=== PATIENT | male | born 1935 | race Caucasian/White ===

== ENCOUNTER 2023-11-10 06:41 | Inpatient (IN) | payer OTHER ==
[2023-11-10] MEDS ORDERED: MIDAZOLAM HCL 2 MG/2 ML SINGLE DOSE VIAL ONE ×2 (08:20→08:52)
[2023-11-10 08:21] LABS: VENOUS O2 SATURATION 21.6 % (70-80); VENOUS PCO2 39.5 mmHg (38-52); VENOUS PH 7.381 (7.310-7.410)
[2023-11-10] MEDS: MIDAZOLAM HCL 2 MG/2 ML SINGLE DOSE VIAL IVPUSH ONE ×2 (08:35→09:03)
[2023-11-10] MEDS: SODIUM CHLORIDE 0.9% 500 ML INFUS.BAG IV ONE ×3 (08:36→12:20)
[2023-11-10 08:38] LABS: BASO % 0.6 % (0-2.0); EOS % 1.1 % (0-4.5); HEMATOCRIT 37.6 % (35.4-49); HEMOGLOBIN 12.6 GM/dL (11.7-16.9); LYMPH % 15.7 % (8-40); MCH 30.1 pg (25.7-33.7); MCHC 33.4 g/dl (32.0-35.9); MEAN CELL VOLUME 90.1 fl (80-96); MEAN PLT VOLUME 8.1 fl (7.5-11.1); MONO % 8.1 % (3.8-10.2); NEUT % 74.5 % (42.8-82.8); PLATELET COUNT 276 10^3/uL (134-434); RBC 4.17 M/mm3 (4.00-5.60); RDW 13.3 % (11.9-15.9); WHITE BLOOD COUNT 8.3 K/mm3 (4.0-10.0)
[2023-11-10 08:41] LABS: POTASSIUM 4.3 mmol/L (3.5-5.1)
[2023-11-10 08:43] LABS: CALCIUM 9.2 mg/dL (8.5-10.1)
[2023-11-10 08:44] LABS: ALBUMIN 3.8 g/dl (3.4-5.0); BLOOD UREA NITROGEN 21.6 mg/dL (7-18)
[2023-11-10 08:48] LABS: BILIRUBIN,TOTAL 0.8 mg/dL (0.2-1); TOT PROT 6.9 g/dl (6.4-8.2)
[2023-11-10 09:31] LABS: MAGNESIUM 2.3 mg/dL (1.8-2.4)
[2023-11-10 11:38] LABS: PH,URINE 7.5 (5.0-8.0); URINE APPEARANCE Clear; URINE BILIRUBIN Negative (NEGATIVE); URINE COLOR Light yellow; URINE GLUCOSE (UA) Negative (NEGATIVE); URINE KETONE Negative (NEGATIVE); URINE LEUK ESTERASE 3+ (NEGATIVE); URINE NITRITE Negative (NEGATIVE); URINE PROTEIN Negative (NEGATIVE); URINE UROBILINOGEN 0.2 mg/dL (0.2-1.0)
[2023-11-10 12:32] LABS: EPI CELLS 11 /uL (0-25.1); URINE RBC 24 /uL (0-23.9); URINE WBC 326 /uL (0-25.8)
[2023-11-10 12:33] LABS: HYALINE CASTS 0.7 /uL (0-3.1); URINE BACTERIA 784 /uL (0-1359)
[2023-11-10] MEDS ORDERED: cefTRIAXone SODIUM 1 GM VIAL ONE (12:56)
[2023-11-10] MEDS ORDERED: CEFTRIAXONE 1 GM/50 ML BAG ONE (12:57)
[2023-11-10] MEDS: DEXTROSE 5%-NORMAL SALINE 1,000 ML IV SCH (14:12)
[2023-11-10] MEDS ORDERED: levETIRAcetam 500 MG/5 ML INJECTION VIAL IVPB ONE (16:58)
[2023-11-10] MEDS: levETIRAcetam 500 MG/5 ML INJECTION VIAL IVPB ONE (17:12)
[2023-11-10] MEDS: levETIRAcetam 500 MG/5 ML INJECTION VIAL IVPB SCH (23:07)
[2023-11-10] MEDS: METOPROLOL TARTRATE 25 MG TABLET (FP) PO SCH (23:08)
[2023-11-11 07:13] LABS: BASO % 0.9 % (0-2.0); EOS % 1.5 % (0-4.5); HEMATOCRIT 33.8 % (35.4-49); HEMOGLOBIN 11.2 GM/dL (11.7-16.9); LYMPH % 11.9 % (8-40); MCH 30.1 pg (25.7-33.7); MCHC 33.2 g/dl (32.0-35.9); MEAN CELL VOLUME 90.5 fl (80-96); MEAN PLT VOLUME 7.8 fl (7.5-11.1); MONO % 10.6 % (3.8-10.2); NEUT % 75.1 % (42.8-82.8); PLATELET COUNT 241 10^3/uL (134-434); RBC 3.73 M/mm3 (4.00-5.60); WHITE BLOOD COUNT 5.8 K/mm3 (4.0-10.0)
[2023-11-11 07:36] LABS: ALBUMIN 3.4 g/dl (3.4-5.0); BLOOD UREA NITROGEN 9.6 mg/dL (7-18); MAGNESIUM 2.1 mg/dL (1.8-2.4); POTASSIUM 3.6 mmol/L (3.5-5.1)
[2023-11-11 07:39] LABS: CREATININE 0.8 mg/dL (0.55-1.3)
[2023-11-11 07:40] LABS: BILIRUBIN,TOTAL 0.7 mg/dL (0.2-1)
[2023-11-11] MEDS: FINASTERIDE 5 MG TABLET (FP) PO SCH (10:23)
[2023-11-11] MEDS: CEFTRIAXONE 1 GM in DEXTROSE 5%-WATER - 50 ML IVPB SCH (10:23)
[2023-11-11] MEDS: SERTRALINE HCL 25 MG TABLET (FP) PO SCH (10:23)
[2023-11-13] MEDS ORDERED: ACETAMINOPHEN 325 MG TABLET (FP) PO PRN (10:51)
[2023-11-13 11:25] LABS: BASO % 0.4 % (0-2.0); EOS % 0.1 % (0-4.5); HEMATOCRIT 33.7 % (35.4-49); HEMOGLOBIN 11.3 GM/dL (11.7-16.9); LYMPH % 10.2 % (8-40); MCH 30.2 pg (25.7-33.7); MCHC 33.6 g/dl (32.0-35.9); MEAN CELL VOLUME 89.8 fl (80-96); MEAN PLT VOLUME 7.3 fl (7.5-11.1); MONO % 9.3 % (3.8-10.2); PLATELET COUNT 261 10^3/uL (134-434); RBC 3.75 M/mm3 (4.00-5.60); WHITE BLOOD COUNT 8.3 K/mm3 (4.0-10.0)
[2023-11-13 11:43] LABS: POTASSIUM 3.4 mmol/L (3.5-5.1)
[2023-11-13 11:45] LABS: CALCIUM 7.7 mg/dL (8.5-10.1)
[2023-11-13 11:46] LABS: BLOOD UREA NITROGEN 10.2 mg/dL (7-18)
[2023-11-13 11:49] LABS: CREATININE 0.8 mg/dL (0.55-1.3)
[2023-11-13 11:51] LABS: BILIRUBIN,TOTAL 0.4 mg/dL (0.2-1); TOT PROT 5.9 g/dl (6.4-8.2)
[2023-11-13] MEDS: PIPERACILLIN/TAZOB 4.5 GM 4.5 GM in DEXTROSE 5%-WATER 100 ML IVPB SCH (21:14)
[2023-11-13] MEDS: ACETAMINOPHEN 1000 MG/100 ML BAG IVPB PRN (22:36)
[2023-11-14 10:47] LABS: BASO % 0.1 % (0-2.0); HEMATOCRIT 36.4 % (35.4-49); LYMPH % 5.9 % (8-40); MCH 29.8 pg (25.7-33.7); MCHC 32.9 g/dl (32.0-35.9); MEAN CELL VOLUME 90.5 fl (80-96); MEAN PLT VOLUME 7.6 fl (7.5-11.1); MONO % 7.4 % (3.8-10.2); NEUT % 86.6 % (42.8-82.8); PLATELET COUNT 295 10^3/uL (134-434); RBC 4.02 M/mm3 (4.00-5.60); RDW 13.2 % (11.9-15.9); WHITE BLOOD COUNT 12.4 K/mm3 (4.0-10.0)
[2023-11-14 11:06] LABS: ALBUMIN 2.8 g/dl (3.4-5.0); BLOOD UREA NITROGEN 18.4 mg/dL (7-18)
[2023-11-14 11:09] LABS: CREATININE 0.9 mg/dL (0.55-1.3)
[2023-11-14 11:11] LABS: BILIRUBIN,TOTAL 0.8 mg/dL (0.2-1)
[2023-11-14] MEDS: PIPERACILLIN/TAZOB 4.5 GM 4.5 GM in DEXTROSE 5%-WATER 100 ML IVPB SCH ×2 (14:55→19:04)
[2023-11-15 07:36] LABS: HEMOGLOBIN 11.8 GM/dL (11.7-16.9); MCH 30.3 pg (25.7-33.7); MCHC 33.9 g/dl (32.0-35.9); MEAN CELL VOLUME 89.4 fl (80-96); MEAN PLT VOLUME 8.2 fl (7.5-11.1); PLATELET COUNT 280 10^3/uL (134-434); RBC 3.91 M/mm3 (4.00-5.60); RDW 13.4 % (11.9-15.9); WHITE BLOOD COUNT 13.3 K/mm3 (4.0-10.0)
[2023-11-15 07:50] LABS: POTASSIUM 3.6 mmol/L (3.5-5.1)
[2023-11-15 07:53] LABS: ALBUMIN 2.4 g/dl (3.4-5.0); BLOOD UREA NITROGEN 24.2 mg/dL (7-18)
[2023-11-15 07:56] LABS: CREATININE 0.7 mg/dL (0.55-1.3)
[2023-11-15 07:57] LABS: BILIRUBIN,TOTAL 0.6 mg/dL (0.2-1); TOT PROT 5.5 g/dl (6.4-8.2)
[2023-11-15 10:25] LABS: ANISOCYTOSIS 0; MACROCYTOSIS 0
[2023-11-15] MEDS: LORazepam 2 MG/ML SDV VIAL IVPUSH PRN (10:35)
[2023-11-15] MEDS: levETIRAcetam 500 MG/5 ML INJECTION VIAL IVPB SCH ×2 (10:38→21:58)
[2023-11-15] MEDS: levETIRAcetam 500 MG/5 ML INJECTION VIAL IVPB ONE (16:47)
[2023-11-15] MEDS: D5-1/2NS+20 MEQ KCL - 20 MEQ/1,000 ML INFUS.BAG IV SCH ×2 (19:43→20:40)
[2023-11-15] MEDS: ACETAMINOPHEN 1000 MG/100 ML BAG IVPB PRN (20:51)
[2023-11-15] MEDS: METOPROLOL TARTRATE 5 MG/5 ML VIAL IVPUSH SCH (21:56)
[2023-11-15] MEDS: MUPIROCIN 2% TOPICAL OINTMENT FOR DECOLONIZATION NS SCH (21:58)
[2023-11-15] MEDS: CHLORHEXIDINE GLUCONATE 4% CLEANSER FOR DECOLONIZATION TP SCH (21:58)
[2023-11-15] MEDS ORDERED: MUPIROCIN 2% TOPICAL OINTMENT FOR DECOLONIZATION NS SCH (22:00)
[2023-11-15] MEDS ORDERED: CHLORHEXIDINE GLUCONATE 4% CLEANSER FOR DECOLONIZATION TP SCH (22:00)
[2023-11-15] MEDS ORDERED: METOPROLOL TARTRATE 25 MG TABLET (FP) PO SCH (22:00)
[2023-11-15] MEDS ORDERED: levETIRAcetam 500 MG/5 ML INJECTION VIAL IVPB SCH ×2 (22:00)
[2023-11-15] MEDS ORDERED: METOPROLOL TARTRATE 5 MG/5 ML VIAL IVPUSH SCH (22:00)
[2023-11-16] MEDS: PIPERACILLIN/TAZOB 4.5 GM 4.5 GM in DEXTROSE 5%-WATER 100 ML IVPB SCH (01:32)
[2023-11-16 07:28] LABS: BASO % 0.1 % (0-2.0); HEMATOCRIT 35.6 % (35.4-49); HEMOGLOBIN 11.8 GM/dL (11.7-16.9); LYMPH % 3.6 % (8-40); MCH 30.2 pg (25.7-33.7); MCHC 33.3 g/dl (32.0-35.9); MEAN CELL VOLUME 90.6 fl (80-96); MEAN PLT VOLUME 8.2 fl (7.5-11.1); MONO % 5.4 % (3.8-10.2); NEUT % 90.9 % (42.8-82.8); PLATELET COUNT 293 10^3/uL (134-434); RBC 3.92 M/mm3 (4.00-5.60); RDW 13.3 % (11.9-15.9); WHITE BLOOD COUNT 13.6 K/mm3 (4.0-10.0)
[2023-11-16 07:50] LABS: POTASSIUM 3.6 mmol/L (3.5-5.1)
[2023-11-16 07:58] LABS: ALBUMIN 2.2 g/dl (3.4-5.0); BLOOD UREA NITROGEN 26.4 mg/dL (7-18); CALCIUM 7.9 mg/dL (8.5-10.1); MAGNESIUM 2.3 mg/dL (1.8-2.4)
[2023-11-16 08:01] LABS: CREATININE 0.8 mg/dL (0.55-1.3); PHOSPHOROUS 1.5 mg/dL (2.5-4.9)
[2023-11-16 08:02] LABS: BILIRUBIN,TOTAL 0.6 mg/dL (0.2-1); TOT PROT 5.6 g/dl (6.4-8.2)
[2023-11-16] MEDS ORDERED: SODIUM PHOSPHATE - 0 MM in DEXTROSE 5%-WATER - 250 ML IVPB ONE (08:35)
[2023-11-16] MEDS: D5-1/2NS+20 MEQ KCL - 20 MEQ/1,000 ML INFUS.BAG IV SCH (10:11)
[2023-11-16] MEDS: SERTRALINE HCL 25 MG TABLET (FP) PO SCH (10:14)
[2023-11-16] MEDS: FINASTERIDE 5 MG TABLET (FP) PO SCH (10:14)
[2023-11-16] MEDS: SODIUM PHOSPHATE - 30 MM in DEXTROSE 5%-WATER - 250 ML IVPB ONE (11:53)
[2023-11-16] MEDS ORDERED: ENOXAPARIN NA (PORCINE) 40 MG/0.4 ML DISP.SYRIN SQ SCH (12:09)
[2023-11-16 14:56] VITALS: BMI 21.2
[2023-11-16] MEDS: MORPHINE SULFATE/0.9% NACL/PF 100 MG/100 ML BAG IVPB SCH (16:14)
[2023-11-16] MEDS: SCOPOLAMINE HYDROBROMIDE 1 PATCH PATCH.TD72 TD SCH (16:15)
[2023-11-17] MEDS ORDERED: POTASSIUM PHOSPHATE 30 MM in DEXTROSE 5%-WATER - 250 ML IVPB ONE (08:30)
[2023-11-17] MEDS: GLYCOPYRROLATE 0.2 MG/1 ML VIAL IM PRN (09:13)
[2023-11-17] MEDS ORDERED: GLYCOPYRROLATE 1 MG/5 ML VIAL IM ONE (09:22)
[2023-11-17] MEDS: GLYCOPYRROLATE 0.2 MG/1 ML VIAL IM ONE (09:50)
[2023-11-17] MEDS ORDERED: ENOXAPARIN NA (PORCINE) 40 MG/0.4 ML DISP.SYRIN SQ SCH (10:00)
[2023-11-17] MEDS: AMINO ACIDS 4.25%/D5W 1,000 ML IV SCH (11:11)
[2023-11-17] MEDS: MORPHINE SULFATE/0.9% NACL/PF 100 MG/100 ML BAG IVPB SCH (14:31)
[2023-11-17] MEDS ORDERED: GLYCOPYRROLATE 0.2 MG/1 ML VIAL IM PRN (18:31)
[2023-11-18] MEDS ORDERED: GLYCOPYRROLATE 0.2 MG/1 ML VIAL IM PRN (17:17)
[2023-11-18] MEDS: MORPHINE SULFATE/0.9% NACL/PF 100 MG/100 ML BAG IVPB SCH (18:54)
[2023-11-18] MEDS: LORazepam 2 MG/ML SDV VIAL IVPUSH PRN (19:43)
[2023-11-18 19:58] VITALS: BP 100/50; PULSE 78; RESP 18; TEMP 100
[2023-11-18] MEDS: levETIRAcetam 500 MG/5 ML INJECTION VIAL IVPB SCH (21:41)
[2023-11-19] MEDS ORDERED: SCOPOLAMINE HYDROBROMIDE 1 PATCH PATCH.TD72 TD SCH (16:00)
== END 2023-11-19 03:06 | disposition expired | DRG 100 ==
LOC: JER 06:41 → JERBED 12:36 → OBSVTOIN 14:07 → J4S 22:25 → JICU 11-15 20:00 → J8W 11-18 18:26
PROVIDERS: ADMIT Family Medicine; ATTEND Family Medicine
DX: G40.901 Epilepsy, unspecified, not intractable, with status epilepticus (principal); J69.0 Pneumonitis due to inhalation of food and vomit; J96.01 Acute respiratory failure with hypoxia; R53.2 Functional quadriplegia; N39.0 Urinary tract infection, site not specified; F02.811 Dementia in other diseases classified elsewhere, unspecified severity, with agitation; F41.8 Other specified anxiety disorders; K21.9 Gastro-esophageal reflux disease without esophagitis; I10 Essential (primary) hypertension; R50.9 Fever, unspecified; N40.0 Benign prostatic hyperplasia without lower urinary tract symptoms; B96.4 Proteus (mirabilis) (morganii) as the cause of diseases classified elsewhere; G30.9 Alzheimer's disease, unspecified; Z95.0 Presence of cardiac pacemaker
CPT/HCPCS: 0241U-QW; 36415; 70450-TC; 71045-TC-FY; 80053; 81003; 82550; 82553; 82803; 82962; 83735; 84100; 84443; 84484; 85025; 87040; 87086; 87186; 93005; 93010; 95816; 99285-25; G0378; J0131